=== PATIENT | male | born 1980 | race Caucasian/White ===

== ENCOUNTER 2018-09-14 13:43 | Emergency (ER) | payer SELFPAY ==
[~2018-09-14] VITALS: Ht 165.1 cm; Wt 59.0 kg
[2018-09-14 13:45] VITALS: BP_SYST 128
[2018-09-14 14:20] VITALS: BP_SYST 126
== END 2018-09-14 14:20 ==
LOC: SED 13:43
DX: Z02.89 Encounter for other administrative examinations (principal); E11.9 Type 2 diabetes mellitus without complications
CPT/HCPCS: 99283